=== PATIENT | female | born 1995 | race Caucasian/White ===

== ENCOUNTER 2017-11-24 15:07 | Emergency (ER) | payer MEDICAID ==
[2017-11-24 15:21] VITALS: BP 120/78
--- NOTE | 2017-11-24 15:25 | UC ---
Abdominal Pain Female HPI - HPI Summary HPI Summary: 22 y/o WF accompanied by her friend and 3m old presents with pain and bleeding from her anus. She tells me that she had her baby via vaginal delivery 3 months ago. A few weeks later she began having pain in her anal region when having a bowel movement. A few days after the pain began, she notice bright red blood in the bowel and toilet paper after bowel movements. She saw her OBGYN for a post-delivery appointment and was told that she had hemorrhoids - per pt. She was not treated for these and was advised that if bleeding/pain persists to return to the clinic. She came to urgent care as she has moved to [place] now. She denies fever, chills, SOB, chest pain, abdominal pain, n/v/d/c, dysuria, vaginal bleeding/discharge/pain, headaches, or dizziness. - History of Current Complaint Hx Obtained From: Patient Hx Last Menstrual Period: 11/09/17 Onset/Duration: Gradual Onset Timing: Constant Severity Initially: Moderate Severity Currently: Moderate Pain Intensity: 5 Pain Scale Used: 0-10 Numeric <Navin Gómez - Last Filed: 11/24/17 19:25> <Mitchell Ruelas - Last Filed: 11/24/17 22:01> - History of Current Complaint Chief Complaint: UCGI Stated Complaint: ANAL BLEEDING Time Seen by Provider: 11/24/17 15:25 Allergies/Adverse Reactions: Allergies Allergy/AdvReac Type Severity Reaction Status Date / Time No Known Allergies Allergy Verified 11/24/17 15:22 PMH/Surg Hx/FS Hx/Imm Hx Previously Healthy: Yes - Surgical History Surgical History: Yes Surgery Procedure, Year, and Place: D&C 2016 - Social History Occupation: Student Lives: Alone Alcohol Use: None Substance Use Type: None Smoking Status (MU): Light Every Day Tobacco Smoker Type: Cigarettes Amount Used/How Often: 1/2 PPD - Immunization History Most Recent Influenza Vaccination: 2014 <Navin Gómez - Last Filed: 11/24/17 19:25> Review of Systems Constitutional: Negative Skin: Negative Genitourinary: Negative Neurovascular: Negative Neurological: Negative Psychological: Negative All Other Systems Reviewed And Are Negative: Yes - Comments Additional Review of Systems Comments: Rectal bleeding <Navin Gómez - Last Filed: 11/24/17 19:25> Physical Exam Triage Information Reviewed: Yes Appearance: Well-Appearing, No Pain Distress, Well-Nourished Vital Signs: Initial Vital Signs Temp 97.5 F 11/24/17 15:09 Pulse 87 11/24/17 15:09 Resp 16 11/24/17 15:09 BP 120/78 11/24/17 15:09 Pulse Ox 100 11/24/17 15:09 Neck: Positive: Supple, Nontender, No Lymphadenopathy Respiratory: Positive: Chest non-tender, Lungs clear, Normal breath sounds Cardiovascular: Positive: RRR, No Murmur, Pulses Normal Abdomen Description: Positive: Nontender, No Organomegaly, Soft. Negative: CVA Tenderness (R), CVA Tenderness (L), Distended, Guarding, McBurney's Point Tenderness Bowel Sounds: Positive: Present Neurological: Positive: Alert - Additional Comments The patient preferred a female provider perform her rectal exam. Dr. Ruelas was available and performed the rectal exam only, these are her dictated findings: External hemorrhoid at 12 o'clock approx 0.5cm. External hemorrhoid at 11 o' clock approx 0.5cm. Internal exam no masses or internal hemorrhoids appreciated. <Navin Gómez - Last Filed: 11/24/17 19:25> Vital Signs: Initial Vital Signs Temp 36.4 C 11/24/17 15:09 Pulse 87 11/24/17 15:09 Resp 16 11/24/17 15:09 BP 120/78 11/24/17 15:09 Pulse Ox 100 11/24/17 15:09 <Mitchell Ruelas - Last Filed: 11/24/17 22:01> Abd Pain Female Course/Dx - Course Course Of Treatment: The diagnosis of external hemorrhoids was explained at length to the patient by Dr. Ruelas, but the patient seemed to be quite confused. I then tried my best to explain the difference between internal and external hemorrhoids, using drawn diagrams, to the patient. After a rather lengthy discussion, she still seemed to be somewhat confused. When asked if she understood she said "yeah" and if she had questions and she said "no". I explained to her the goal of treatment with Anusol and the reason for the referral to general surgery to get these removed if she wished. Again, the patient had a puzzled expressed and seemed to want to ask a question, but when I paused and asked her if she understood or had a question she said "no i get it ". - Differential Dx/Diagnosis Provider Diagnoses: External hemorrhoids <Navin Gómez - Last Filed: 11/24/17 19:25> - Course Course Of Treatment: Examined and discussed pt with HAJA Cool about pt's findings. Pt has visible external hemorrhoids without prolapsing internal hemorrhoids on exam. Discussed at length on the difference. Pt still relates that she has bledding hemorrhoids. We explained that she needs further work up by a rectal surgeon via anoscopy to evaulate for internal hemorrhoids and whether she needs surgical intervention. Pt verbalizes understanding of the next recommendation of care but still "would like to go back to her PCP" although she expected "someone in THIS clinic to do something about it" I explained this is NOT a surgical care clinic and re-explain the plan of care. Pt loosely verbalized understanding and accepts script for Anusol upon discharge. Gave contact information for Dr Lawrence the general surgeon for further management. <Mitchell Ruelas - Last Filed: 11/24/17 22:01> Discharge <Navin Gómez - Last Filed: 11/24/17 19:25> <Mitchell Ruelas - Last Filed: 11/24/17 22:01> - Discharge Plan Condition: Stable Disposition: HOME Prescriptions: Hydrocortisone SUPP* [Anusol HC Supp*] 25 mg CO BID #30 supp Patient Education Materials: Hemorrhoids (ED) Referrals: No Primary Care Phys,NOPCP [Primary Care Provider] - Rich Lawrence MD [Medical Doctor] - If Needed Additional Instructions: If you develop a fever, shortness of breath, chest pain, new or worsening symptoms - please call your PCP or go to the ED. 1) If the cream/suppository does not improve your rectal pain or bleeding - please call Dr. Lawrence at the number below to schedule an appointment to discuss having these surgically removed.
== END 2017-11-24 16:20 | disposition home or self-care (01) ==
LOC: UCEAST 15:07
DX: K64.4 Residual hemorrhoidal skin tags (principal); Z11.4 Encounter for screening for human immunodeficiency virus [HIV]; F17.210 Nicotine dependence, cigarettes, uncomplicated
CPT/HCPCS: 36415; 86703; 99212; G0463